=== PATIENT | female | born 1950 | race Caucasian/White ===

== ENCOUNTER 2020-11-20 14:38 | Emergency (ER) | payer MEDICARE, OTHER, SELFPAY ==
[2020-11-20 14:42] VITALS: BP 160/71; PULSE 95; RESP 16; TEMP 36.8; O2SAT 99
--- NOTE | 2020-11-20 14:44 | ED.EAR ---
HPI - Ear Problem General Chief complaint: Ear Stated complaint: FB EAR Source: patient and RN notes reviewed Mode of arrival: ambulatory Limitations: no limitations History of Present Illness HPI Narrative: 70-year-old female presents with concern for possible foreign body in her right ear. Reports she is missing the rubber tip from a hearing aid. Reports she is not sure if it is in her ear or not. She denies any ear pain, decreased hearing, ringing in the ear, discharge from the ear. MD Complaint: foreign body Related Data Home Medications Medication Instructions Recorded Confirmed cholecalciferol (vitamin D3) 50 50 mcg PO DAILY 05/28/20 10/18/20 mcg (2,000 unit) capsule atorvastatin 40 mg tablet 40 mg PO DAILY 10/18/20 10/18/20 calcium citrate 200 mg (950 mg) 200 mg PO DAILY 10/18/20 10/18/20 tablet coenzyme Q10 10 mg capsule 10 mg PO ONCE 10/18/20 10/18/20 multivitamin 1 tablet PO DAILY 10/18/20 10/18/20 Allergies Allergy/AdvReac Type Severity Reaction Status Date / Time tetracycline Allergy Mild Unknown Verified 10/18/20 10:07 Sulfa (Sulfonamide Allergy Unknown Unknown Verified 10/18/20 10:07 Antibiotics) Review of Systems Review of Systems: Narrative: CONSTITUTIONAL: Denies malaise, chills, sweats, or fever. ENT: Reports possible foreign body in the right ear, denies pain, discharge, decreased hearing NEUROLOGIC: Denies headache. All systems reviewed & are unremarkable except as noted in HPI and below PMFSH Past Medical History Medical History Dyslipidemia Osteopenia Tinnitus of both ears Surgical History Surgical History (Updated 08/17/19 @ 15:19 by Nathanael Bryant MD) History of dilatation and curettage History of hernia repair right congenital inguinal hernia repair 1950 History of tonsillectomy History of tubal ligation Family History Family History Other Family history of coronary artery disease Family history of malignant neoplasm of breast Social History Social History Smoking status: Never smoker Second hand tobacco smoke exposure: No Alcohol intake: current Substance use: never Substance use type: does not use Gender identity (if verbalized by the patient): Female Spiritual care concerns: Yes Agree to blood products: Yes Comments At time of signature, agree with nursing past medical, surgical, social and family history. There is no relevant family history pertinent to the presenting complaint Exam Narrative: Exam Narrative: GENERAL: Well-appearing, well-nourished, and in no acute distress. HEAD: Normocephalic EYES: PERRLA, conjunctivae clear ENT: Nares clear. Mucous membranes moist. TM pearly her with sharp light reflex bilaterally; no tragal tenderness no foreign body noted, no drainage noted, auditory canal unremarkable bilaterally. NECK: Supple. CHEST: No respiratory distress. Speaks in full sentences. HEART: Regular rate and rhythm. SKIN: Warm, dry, no rash. NEURO: Alert and oriented x3. PSYCH: Normal mood and affect Course Course Emergency Course: Patient is aware of diagnosis, understands and agrees to treatment plan. Anticipatory guidance given. Patient agrees to follow-up as directed and is aware of reasons to seek care at the emergency department. Portions of this record may have been created with voice recognition software Vital Signs Vital signs: Vital Signs Temperature 98.2 F 11/20/20 14:42 Pulse Rate 95 11/20/20 14:42 Respiratory Rate 16 11/20/20 14:42 Blood Pressure 160/71 H 11/20/20 14:42 Pulse Oximetry 99 11/20/20 14:42 Temperature 98.2 F 11/20/20 14:42 Pulse Rate 95 11/20/20 14:42 Respiratory Rate 16 11/20/20 14:42 Blood Pressure 160/71 H 11/20/20 14:42 Pulse Oximetry 99 11/20/20 14:42 Reviewed. Medical D
== END 2020-11-20 14:55 | disposition home or self-care (01) ==
PROVIDERS: Emergency Provider Nurse Practitioner; PCP Nurse Practitioner Family
DX: Z04.89 Encounter for examination and observation for other specified reasons (principal)
CPT/HCPCS: 99211; G0463

== ENCOUNTER → 2022-11-26 11:56 | Outpatient (CLI) | payer MEDICARE, OTHER, SELFPAY ==
--- NOTE | ~2022-11-26 | XR_ITS ---
Left Knee Technique: AP and lateral views were obtained. Clinical History: Pain Findings: No fracture or dislocation is seen. Osseous alignment is anatomic. Joint spaces are preserv ed without degenerative or erosive change. Soft tissues are unremarkable. No joint effusion is seen. Impression: Unremarkable left knee radiographs. Reviewed, dictated and finalized at location . Impression: Unremarkable left knee radiographs.
--- NOTE | ~2022-11-26 | XR_ITS ---
XR hip LT min 2V DATE: 11/26/2022 12:22 INDICATION: Left hip pain. No injury. TECHNIQUE: AP and lateral views of left hip COMPARISON: None FINDINGS: There is a transitional lumbosacral vertebra with sacralization pseudoarthrosis on the left , lumbarization on the right. The pubic symphysis and sacroiliac joints are intact. No left hip fracture or dislocation, avascular necrosis or bone destruction is evident. The left hip joint space appears relatively well preserved. 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
== END ==
PROVIDERS: PCP Nurse Practitioner Family; Visit Provider Nurse Practitioner Family
DX: R52 Pain, unspecified (principal)
CPT/HCPCS: 73502; 73560

== ENCOUNTER 2024-06-28 14:05 | Emergency (ER) | payer MEDICARE, OTHER, SELFPAY ==
--- NOTE | ~2024-06-28 | XR_ITS ---
EXAMINATION: XR chest 2V DATE: 06/28/2024 14:39 INDICATION: Cough. TECHNIQUE: Frontal and lateral views of the chest were obtained. COMPARISON: Chest 2 views 12/20/2013 FINDINGS: There is mild atelectasis in left lower lung zone. No pleural effusion or pneumothorax. The heart size is normal. There is mild chronic anterior wedging of multiple vertebral bodies. IMPRESSION: 1. Mild atelectasis in left lower lung zone. Reviewed, dictated and finalized at location A. [facility]
--- NOTE | 2024-06-28 14:07 | ED.GENADULT ---
HPI - General Adult General Chief complaint: Upper Respiratory Infection Stated complaint: COUGH Time Seen by Provider: 06/28/24 14:13 Source: patient, RN notes reviewed and old records reviewed Mode of arrival: ambulatory Limitations: no limitations History of Present Illness HPI narrative: 74-year-old female presents to the [facility] with a cough that started on Thursday, 4 days. Patient was concern for whooping cough states that she was around kids in [place] at [place] time flu were exposed to whooping cough. Has not taken anything for her symptoms. Denies shortness of breath. Related Data Home Medications ?Medication ?Instructions ?Recorded ?Confirmed ?Last Taken ?Type cholecalciferol (vitamin D3) 50 50 mcg PO DAILY 05/28/20 02/02/24 Unknown History mcg (2,000 unit) capsule calcium citrate 200 mg PO DAILY 10/18/20 02/02/24 Unknown History coenzyme Q10 10 mg capsule 10 mg PO ONCE 10/18/20 02/02/24 Unknown History multivitamin (Daily Multi-Vitamin 1 tablet PO DAILY 10/18/20 02/02/24 Unknown History tablet) Allergies Allergy/AdvReac Type Severity Reaction Status Date / Time tetracycline Allergy Mild Unknown Verified 06/28/24 14:19 Sulfa (Sulfonamide Allergy Unknown Unknown Verified 06/28/24 14:19 Antibiotics) Review of Systems Review of Systems: All systems reviewed & are unremarkable except as noted in HPI and below Constitutional: Constitutional: Reports no additional constitutional complaints ENT: Reports system reviewed and no additional complaints, except as documented Cardiovascular: Cardiovascular: Reports no additional cardiovascular complaints, Denies chest pain and Denies dyspnea Respiratory: Respiratory: Reports as per HPI, Denies chest congestion, Reports cough and Denies dyspnea Musculoskeletal: Musculoskeletal: Reports no additional musculoskeletal complaints Integumentary/Breasts: Skin/Breast: Reports system reviewed and no additional complaints, except as docu PMFSH Past Medical History Medical History Tinnitus of both ears Dyslipidemia Osteopenia Surgical History Surgical History History of hernia repair right congenital inguinal hernia repair 1950 History of tonsillectomy History of dilatation and curettage History of tubal ligation Family History Family History Other Family history of coronary artery disease Family history of malignant neoplasm of breast Social History Social History Smoking status: Never smoker Second hand tobacco smoke exposure: No Alcohol intake: current Alcohol use details: 1 glass of red wine when out for dinner. Substance use: never Substance use type: does not use Lack of Transportation: No Lack of Food: Never True Current Housing: I Have Housing Concerned About Future Housing: No Difficulty Paying Gas/Electric Bills: No Difficulty Paying for Meds: No Currently Unemployed: No Education: Bachelor's Degree Difficulty w/ Childcare or Family Care: No Living arrangements: with family Occupation/Education: retired Gender identity (if verbalized by the patient): Female Spiritual care concerns: Yes Agree to blood products: Yes Comments At the time of my signature, I reviewed and agree with the nursing past medical, surgical, social, and family history. There is no relevant family history pertinent to the patient complaint. Exam Const: General: cooperative, healthy appearing, comfortable, no acute distress, well developed, alert and well nourished Nutritional Appearance: well nourished Orientation/consciousness: patient oriented x3 Limitations: no limitations HENMT: Head: normal to inspection Ears: hearing grossly normal bilaterally, external ears normal, TM's normal bilaterally, EAC's normal, mastoids normal and no periauricular adenopathy Mouth: Yes Normal oral and palatal mucosa present, Yes lip normal, Yes tongue normal and Yes moist mucous membranes Throat: posterior oropharynx normal, uvula midline and no uvular edema Eyes: General: appearance normal, both eyes and all related structures Alignment and Position: alignment normal Neck: Neck: normal visual inspection, full ROM, no lymphadenopathy and no meningeal signs Chest: Chest palpation & inspection: normal inspection of the chest Resp: Effort & Inspection: normal respiratory effort and able to speak in complete sentences Auscultation: clear to auscultation bilaterally, no crackles, no rales, no rhonchi and no wheezes Cardio: Rate: regular rate Skin: General skin exam: normal color and no rashes or lesions noted Neuro: General: patient oriented x3, gait normal, moves all extremities and no meningeal signs Cognition (Neuro): normal cognition Speech: normal speech Gait exam (Neuro): Normal gait present Extrem: General: normal to inspection, full ROM, capillary refill normal and normal gait Psych: Appearance: grossly normal and well kempt Mental Status: mental status grossly normal Speech and movement: Normal speech and movement present and Clear speech present Affect: normal affect Attitude: cooperative Course Course Level of Care: Express Care Visit Vital Signs Vital signs: Vital Signs Temperature 98.1 F 06/28/24 14:13 Pulse Rate 94 06/28/24 14:13 Respiratory Rate 16 06/28/24 14:13 Blood Pressure 169/83 H 06/28/24 14:13 Pulse Oximetry 97 06/28/24 14:13 Temperature 98.1 F 06/28/24 14:13 Pulse Rate 94 06/28/24 14:13 Respiratory Rate 16 06/28/24 14:13 Blood Pressure 169/83 H 06/28/24 14:13 Pulse Oximetry 97 06/28/24 14:13 Reviewed Medical Decision Making MDM Narrative Medical decision making narrative: Patient sitting comfortably in exam room. Nontoxic, vitals stable. Patient in no acute distress Patient presents for a cough for 4 days. No acute findings noted on exam. X-rays negative. Explained to patient that we do not test for whooping cough. Patient appropriate for outpatient treatment and follow-up Discharge instructions reviewed with patient, as well as provided in writing per nursing staff. The instructions also include specific and strict return/GO TO THE ER as well as f/u information. All questions have been answered, and the patient deny any further questions with discharge and discharge plan. Some parts of this dictation were generated by voice recognition software and may contain typographical and/or grammatical inaccuracies. Differential Diagnosis Differential Diagnosis: Bronchitis, URI, Medical Records Medical records reviewed: Yes I reviewed the external patient's medical records. Vital Signs Vital Signs: Vital Signs Temperature 98.1 F 06/28/24 14:13 Pulse Rate 94 06/28/24 14:13 Respiratory Rate 16 06/28/24 14:13 Blood Pressure 169/83 H 06/28/24 14:13 Pulse Oximetry 97 06/28/24 14:13 Temperature 98.1 F 06/28/24 14:13 Pulse Rate 94 06/28/24 14:13 Respiratory Rate 16 06/28/24 14:13 Blood Pressure 169/83 H 06/28/24 14:13 Pulse Oximetry 97 06/28/24 14:13 Reviewed Lab Data Lab results reviewed: Yes I reviewed the patient's lab results. Labs: Reviewed Imaging Data Radiologist's impression: EXAMINATION: XR chest 2V DATE: 06/28/2024 14:39 INDICATION: Cough. TECHNIQUE: Frontal and lateral views of the chest were obtained. COMPARISON: Chest 2 views 12/20/2013 FINDINGS: There is mild atelectasis in left lower lung zone. No pleural effusion or pneumothorax. The heart size is normal. There is mild chronic anterior wedging of multiple vertebral bodies. IMPRESSION: 1. Mild atelectasis in left lower lung zone. Critical Care Time Critical Care Time Critical Care Time: No Discharge Plan Discharge Clinical Impression: Atelectasis Cough Qualifiers: Cough type: acute Qualified Code(s): R05.1 - Acute cough Patient Disposition: Home, Self-Care Condition: Stable Instructions: Antibiotic Form, How to Use an Incentive Spirometer (ED), Acute Bronchitis (ED), Atelectasis (ED) Additional Instructions: please read the handout that you have been given it is extremely important that you do take 10 deep breaths every hour while awake. Please use your incentive spirometer follow-up with your primary care provider today your blood pressure was 169/83. Is recommended that you follow-up within 2 weeks. For new or worsening symptoms go directly to the emergency room Patient Language: Hungarian Prescriptions: New azithromycin 250 mg tablet See Rx Instructions .ROUTE .COMPLEX Qty: 6 0RF Rx Instructions: For 250 mg dose pack: take 500 mg today (day 1), then 250 mg for 4 days (days 2-5) No Action multivitamin [Daily Multi-Vitamin] Tablet 1 tablet PO DAILY coenzyme Q10 10 mg capsule 10 mg PO ONCE calcium citrate 200 mg (950 mg) tablet 200 mg PO DAILY cholecalciferol (vitamin D3) 50 mcg (2,000 unit) capsule 50 mcg PO DAILY atorvastatin 40 mg tablet 40 mg PO DAILY Qty: 90 1RF Follow-up/Referrals: Eliane Drew NP [Primary Care Provider] - 2 Weeks ( [facility] follow-up) Time of Disposition: 14:49
[2024-06-28 14:13] VITALS: BP 169/83; PULSE 94; RESP 16; TEMP 36.7; O2SAT 97
== END 2024-06-28 14:55 | disposition home or self-care (01) ==
PROVIDERS: Emergency Provider Nurse Practitioner; PCP Nurse Practitioner Family
DX: J98.11 Atelectasis (principal); R05.1 Acute cough; E78.5 Hyperlipidemia, unspecified; M85.80 Other specified disorders of bone density and structure, unspecified site
CPT/HCPCS: 71046; 99213; G0463